=== PATIENT | female | born 1985 | race Hispanic/Latino ===

== ENCOUNTER 2018-03-26 16:44 | Emergency (ER) | payer OTHER ==
[2018-03-26 18:07] LABS: Absolute Lymphocytes (CBC) 2.9 K/uL (0.7-4.9); Absolute Monocytes 0.6 K/uL (0.1-1.3); Absolute Neutrophil 6.1 K/uL (1.8-8.0); Basophils % 0.8 % (0-1.3); Eosinophils % 1.4 % (0-4.4); Hematocrit 37.9 % (36.0-45.0); Lymphocytes % 29.3 % (15.3-44.8); MPV 8.4 fL (7.6-11.3); Monocytes % 6.1 % (3.3-12.3); RBC Red Blood Cell Count 4.39 M/uL (3.86-4.86)
[2018-03-26 18:19] LABS: Potassium 3.6 mmol/L (3.5-5.1)
[2018-03-26 18:57] LABS: Urine Bacteria <20 /HPF (<20); Urine RBC TNTC /HPF (NONE SEEN)
[2018-03-26 18:58] LABS: Urine Culture Reflex Order NOT NEEDED
--- NOTE | 2018-03-26 20:14 | ER ---
Nurse's Notes [facility] Name: Silvina Cardoso Age: 32 yrs Sex: Female : 1985 Arrival Date: 03/26/2018 Time: 16:50 Bed 24 Private MD: None, None Diagnosis: Abnormal uterine and vaginal bleeding, unspecified Presentation: 03/26 16:56 Presenting complaint: Patient states: Very heavy bleeding, 2-3 pads an hour since last night around 2100. I am on the E sure, I got it 3.5 years ago, I dont know if something is wrong with it. I am having cramping and pain in my front and lower back. I have been seeing specialists in [facility] for this, but the bleeding has never been this bad. Transition of care: patient was not received from another setting of care. Onset of symptoms was March 25, 2018 at 21:00. Risk Assessment: Do you want to hurt yourself or someone else? Patient reports no desire to harm self or others. Initial Sepsis Screen: Does the patient meet any 2 criteria? No. Patient's initial sepsis screen is negative. Does the patient have a suspected source of infection? No. Patient's initial sepsis screen is negative. Care prior to arrival: None. 16:56 Method Of Arrival: Ambulatory 16:56 Acuity: SUSIE 3 Triage Assessment: 16:59 General: Appears in no apparent distress. uncomfortable, Behavior is cooperative, ch appropriate for age. Pain: Complains of pain in low back area, suprapubic area, right lower quadrant, left lower quadrant and pelvis Pain currently is 4 out of 10 on a pain scale. : Reports vaginal bleeding that is bright red, with clots, heavy flow. 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 ch Historical: - Allergies: 16:59 No Known Allergies; - Home Meds: 16:59 esure- coil in my fallopian tubes [Active]; ch - PMHx: 16:59 heavy periods; ch - PSHx: 16:59 None; ch - Immunization history:: Adult Immunizations up to date, Flu vaccine is not up to date. - Social history:: Smoking status: Patient/guardian denies using tobacco, Patient/guardian denies using alcohol, street drugs. - Ebola Screening: : Patient negative for fever greater than or equal to 101.5 degrees Fahrenheit, and additional compatible Ebola Virus Disease symptoms Patient denies exposure to infectious person Patient denies travel to an Ebola-affected area in the 21 days before illness onset No symptoms or risks identified at this time. Screenin:28 Abuse screen: Denies threats or abuse. Denies injuries from another. Nutritional ed1 screening: No deficits noted. Tuberculosis screening: No symptoms or risk factors identified. Fall Risk None identified. Assessment: 18:54 Reassessment: Patient appears in no apparent distress at this time. No changes from ed1 previously documented assessment. Patient and/or family updated on plan of care and expected duration. Pain level reassessed. Patient is alert, oriented x 3, equal unlabored respirations, skin warm/dry/pink. Patient states symptoms have not improved. : Urine is blood tinged. 20:02 Reassessment: Patient appears in no apparent distress at this time. No changes from ed1 previously documented assessment. Patient and/or family updated on plan of care and expected duration. Pain level reassessed. Patient is alert, oriented x 3, equal unlabored respirations, skin warm/dry/pink. Patient states symptoms have not improved. Vital Signs: 16:59 BP 148 / 83; Pulse 72; Resp 14; Temp 98.6; Pulse Ox 99% on R/A; Weight 110.22 kg; Height 5 ft. 5 in. (165.10 cm); Pain 4/10; 18:54 BP 135 / 84; Pulse 76; Resp 17; Pulse Ox 100% on R/A; Pain 4/10; ed1 20:02 BP 132 / 86; Pulse 73; Resp 17; Pulse Ox 100% on R/A; Pain 4/10; ed1 16:59 Body Mass Index 40.44 (110.22 kg, 165.10 cm) ED Course: 16:50 Patient arrived in ED. sb2 16:51 None, None is Private Physician. sb2 16:58 Triage completed. 16:59 Arm band placed on left wrist. Patient placed in waiting room. 17:28 Kristy Bonilla LVN is Primary Nurse. ed1 17:28 Patient has correct armband on for positive identification. Placed in gown. Bed in low ed1 position. Call light in reach. Adult w/ patient. Pulse ox on. NIBP on. 17:30 Susana Slaughter FNP-C is PHCP. kb 17:30 Stewart Ocampo MD is Attending Physician. kb 17:53 Initial lab(s) drawn, by me, sent to lab. T\T\S collected, blood band applied to patient. ed1 Inserted saline lock: 20 gauge in right antecubital area, using aseptic technique. Blood collected. 19:29 US Transvaginal Study (Probe) In Process Unspecified. EDMS 20:[address] vm2 20:47 CT Pelvis w cont In Process Unspecified. EDMS 20:47 CT completed. Patient tolerated procedure well. Patient moved back from CT. nj 21:14 No provider procedures requiring assistance completed. IV discontinued, intact, jb4 bleeding controlled. Administered Medications: 20:24 Drug: DepoProvera - medroxyPROGESTERone 150 mg Route: IM; Site: right gluteus; ed1 Outcome: 20:13 Discharge ordered by . kb 21:14 Discharged to home ambulatory, with family. jb4 21:14 Condition: stable 21:14 Discharge instructions given to patient, family, Instructed on discharge instructions, follow up and referral plans. Demonstrated understanding of instructions, follow-up care. 21:15 Patient left the ED. jb4 Signatures: Dispatcher [employer] EDSC Susana Slaughter FNP-C FNP-Madhuri Parson, RN RN Kristy Terrazas, SENIOR GRADUATE ADVISOR SENIOR GRADUATE ADVISOR ed1 Basilio Jimenez RN RN jb4 Ludwig Caruso Victoria 2 Mariajose Freed [facility]
--- NOTE | 2018-03-26 20:14 | EDPHYS ---
Physician Documentation [facility] Name: Silvina Cardoso Age: 32 yrs Sex: Female : 1985 Arrival Date: 03/26/2018 Time: 16:50 Bed 24 Private MD: None, None ED Physician Stewart Ocampo HPI: 03/26 18:30 This 32 yrs old Female presents to ER via Ambulatory with complaints of kb Vaginal Bleeding - HEAVY. 18:30 The patient presents with vaginal bleeding that is heavy, with no clots. Onset: The kb symptoms/episode began/occurred this morning. Modifying factors: The symptoms are alleviated by nothing, the symptoms are aggravated by nothing. Associated signs and symptoms: Pertinent positives: cramping, vaginal bleeding, Pertinent negatives: constipation, diarrhea, dyspareunia, dysuria, fever, hematuria, nausea, urinary frequency, vaginal discharge, vomiting. Severity of symptoms: At their worst the symptoms were moderate, in the emergency department the symptoms are unchanged. The patient's method of control includes essure. The patient has experienced similar episodes in the past. 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 Pt states she has been having problems with heavy vaginal bleeding/prolonged vaginal bleeding for a while. Has been going to the [facility] women's clinic and they sent her to [place] for Ultrasounds. States they prescribed her oral control, but the pharmacy told her it wasn't covered by insurance so she didn't pick it up. Started having heavy bleeding again today. 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 ch Historical: - Allergies: 16:59 No Known Allergies; ch - Home Meds: 16:59 esure- coil in my fallopian tubes [Active]; ch - PMHx: 16:59 heavy periods; ch - PSHx: 16:59 None; ch - Immunization history:: Adult Immunizations up to date, Flu vaccine is not up to date. - Social history:: Smoking status: Patient/guardian denies using tobacco, Patient/guardian denies using alcohol, street drugs. - Ebola Screening: : Patient negative for fever greater than or equal to 101.5 degrees Fahrenheit, and additional compatible Ebola Virus Disease symptoms Patient denies exposure to infectious person Patient denies travel to an Ebola-affected area in the 21 days before illness onset No symptoms or risks identified at this time. ROS: 18:34 Constitutional: Negative for fever, chills, and weight loss, Cardiovascular: Negative kb for chest pain, palpitations, and edema, Respiratory: Negative for shortness of breath, cough, wheezing, and pleuritic chest pain, Abdomen/GI: Negative for abdominal pain, nausea, vomiting, diarrhea, and constipation, Back: Negative for injury and pain, MS/Extremity: Negative for injury and deformity, Skin: Negative for injury, rash, and discoloration, Neuro: Negative for headache, weakness, numbness, tingling, and seizure. 18:34 : Positive for vaginal bleeding. Exam: 18:34 Constitutional: This is a well developed, well nourished patient who is awake, alert, kb and in no acute distress. Head/Face: Normocephalic, atraumatic. Chest/axilla: Normal chest wall appearance and motion. Nontender with no deformity. No lesions are appreciated. Cardiovascular: Regular rate and rhythm with a normal S1 and S2. No gallops, murmurs, or rubs. Normal PMI, no JVD. No pulse deficits. Respiratory: Lungs have equal breath sounds bilaterally, clear to auscultation and percussion. No rales, rhonchi or wheezes noted. No increased work of breathing, no retractions or nasal flaring. Abdomen/GI: Soft, non-tender, with normal bowel sounds. No distension or tympany. No guarding or rebound. No evidence of tenderness throughout. Skin: Warm, dry with normal turgor. Normal color with no rashes, no lesions, and no evidence of cellulitis. MS/ Extremity: Pulses equal, no cyanosis. Neurovascular intact. Full, normal range of motion. Neuro: Awake and alert, GCS 15, oriented to person, place, time, and situation. Cranial nerves II-XII grossly intact. Motor strength 5/5 in all extremities. Sensory grossly intact. Cerebellar exam normal. Normal gait. Vital Signs: 16:59 BP 148 / 83; Pulse 72; Resp 14; Temp 98.6; Pulse Ox 99% on R/A; Weight 110.22 kg; ch Height 5 ft. 5 in. (165.10 cm); Pain 4/10; 18:54 BP 135 / 84; Pulse 76; Resp 17; Pulse Ox 100% on R/A; Pain 4/10; ed1 20:02 BP 132 / 86; Pulse 73; Resp 17; Pulse Ox 100% on R/A; Pain 4/10; ed1 16:59 Body Mass Index 40.44 (110.22 kg, 165.10 cm) ch MDM: 17:30 Patient medically screened. kb 18:35 Data reviewed: vital signs, nurses notes. Data interpreted: Pulse oximetry: on room air kb is 99 %. Interpretation: normal. 20:11 Counseling: I had a detailed discussion with the patient and/or guardian regarding: the kb historical points, exam findings, and any diagnostic results supporting the discharge/admit diagnosis, lab results, radiology results, the need for outpatient follow up, an OB/Gyne specialist, to return to the emergency department if symptoms worsen or persist or if there are any questions or concerns that arise at home. 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 Return for dizziness, shortness of breath, fatigue or any other concerns.. 03/26 17:36 Order name: Basic Metabolic Panel; Complete Time: 18:25 kb 03/26 17:36 Order name: CBC with Diff; Complete Time: 18:12 kb 03/26 17:36 Order name: Type And Screen; Complete Time: 18:52 kb 03/26 17:54 Order name: Urine Microscopic Only; Complete Time: 18:59 ed1 03/26 17:55 Order name: Urine Dipstick--Ancillary (enter results); Complete Time: 20:47 ag 03/26 17:36 Order name: Urine Test (obtain specimen); Complete Time: 17:53 kb 03/26 17:36 Order name: Urine Dipstick-Ancillary (obtain specimen); Complete Time: 17:53 kb 03/26 17:36 Order name: IV Saline Lock; Complete Time: 17:53 kb 03/26 17:55 Order name: Urine --Ancillary (enter results); Complete Time: 20:47 ag 03/26 18:26 Order name: US Transvaginal Study (Probe); Complete Time: 20:19 kb 03/26 19:43 Order name: ABO/RH no charge; Complete Time: 19:44 EDMS 03/26 20:22 Order name: CT Pelvis w cont; Complete Time: 21:08 kb 03/26 17:36 Order name: Labs collected and sent; Complete Time: 17:53 kb 03/26 17:36 Order name: NPO; Complete Time: 17:53 kb Administered Medications: 20:24 Drug: DepoProvera - medroxyPROGESTERone 150 mg Route: IM; Site: right gluteus; ed1 Disposition: 03/27 07:15 Co-signature as Attending Physician, Stewart Ocampo MD I agree with the assessment and kdr plan of care. Disposition: 03/26/18 20:13 Discharged to Home. Impression: Abnormal uterine and vaginal bleeding, unspecified. - Condition is Stable. - Discharge Instructions: Abnormal Uterine Bleeding, [id number]. - Medication Reconciliation Form, Thank You Letter, Antibiotic Education, Prescription Opioid Use form. - Follow up: Emergency Department; When: As needed; Reason: Worsening of condition. Follow up: Private Physician; When: 2 - 3 days; Reason: Recheck today's complaints, Continuance of care, Re-evaluation by your physician. Signatures: Dispatcher [employer] EDMS Susana Slaughter, REGULATORY AUDITOR-C REGULATORY AUDITOR-Ckb Madhuri Eddy, RN RN Stewart Ocampo MD MD [facility] Kristy Bonilla, HAND COMPOSITOR HAND COMPOSITOR ed1 Basilio Jimenez, RN RN jb4 Corrections: (The following items were deleted from the chart) 03/26 18:35 18:30 Pt states she has been having problems with heavy vaginal bleeding/prolonged kb vaginal bleeding for a while. Has been going to the [facility] women's clinic and they sent her to [place] for Ultrasounds. States they prescribed her oral control, but the pharmacy told her it wasn't covered by insurance so she didn't pick it up.. kb 21:15 20:13 03/26/2018 20:13 Discharged to Home. Impression: Abnormal uterine and vaginal jb4 bleeding, unspecified. Condition is Stable. Forms are Medication Reconciliation Form, Thank You Letter, Antibiotic Education, Prescription Opioid Use. Follow up: Emergency Department; When: As needed; Reason: Worsening of condition. Follow up: Private Physician; When: 2 - 3 days; Reason: Recheck today's complaints, Continuance of care, Re-evaluation by your physician. kb
--- NOTE | 2018-03-26 20:17 | RAD REPORT ---
EXAM DESCRIPTION: US - Transvaginal Study Probe - 03/26/2018 7:29 pm CLINICAL HISTORY: Vaginal bleeding/abdominal pain COMPARISON: none FINDINGS: The uterus measures 10 x 6 x 7 cm. Endometrial stripe within the lower uterine segment measures 16 millimeters and is somewhat inhomogen eous. Endometrial stripe measures 1 centimeter within uterine fundus. A 8 millimeter fibroid is present. Small echogenic structure is seen within the right aspect of the u terus. The cervical canal appears mildly inhomogeneous. Left ovary normal in size and echotexture. Right ovary is not seen. No significant free fluid is seen. IMPRESSION: 8 millimeter fibroid . Heterogeneous endometrial stripe within the lower uterine segment probably is not significant. Lurdes r it is recommended that the patient have a follow up ultrasound in a couple of months for re-evaluat ion Echogenic structure within the right aspect of the uterus may a represent a portion of an Essure coil . A coil within the left aspect of the uterus is not seen. It is uncertain if the coils are present b ut not seen secondary to technical factors or if the coils are not present within the uterus. If clin ically indicated further evaluation with an unenhanced CT scan the pelvis could be obtained for jamar r assessment of the coils
[2018-03-26] MEDS ORDERED: MEDROXYPROGEST ACET 150 MG/ML IM ONE (20:24)
[2018-03-26 20:46] LABS: Urine Blood 3+ (NEG); Urine Glucose NEGATIVE (NEG); Urine Protein 3+ (NEG); Urine pH 5.5 (5.0-7.0)
--- NOTE | 2018-03-26 21:00 | RAD REPORT ---
EXAM DESCRIPTION: CT - Pelvis W/Cont - 03/26/2018 8:47 pm CLINICAL HISTORY: Vaginal bleeding/abdominal pain COMPARISON: March 26, 2018 ultrasound TECHNIQUE: Computed axial tomography of the pelvis was obtained. 50 cc [id number]-[address] administered intra ven[address] All CT scans are performed using dose optimization technique as appropriate and may include automated exposure control or mA/KV adjustment according to patient size. FINDINGS: Bilateral Essure coils are in good position within the uterus extending to the fallopian t ubes. Endometrial stripe within the lower uterine segment is thickened. Ovaries appear normal in size and density. No significant free fluid. There is no evidence of diverticulitis. The appendix is normal. A tiny umbilical hernia IMPRESSION: Endometrial stripe is thickened within the lower uterine segment. This may be related to normal menstrual changes. Pathology such as a polyp or other mass has a similar appearance. Followup ultrasound in a couple months is recommended for re-evaluation. Essure Coils in good position
== END 2018-03-26 21:15 | disposition home or self-care (01) ==
LOC: ER 16:44
DX: N93.9 Abnormal uterine and vaginal bleeding, unspecified (principal)
CPT/HCPCS: 36415; 72193; 76830; 80048; 81003; 81015; 81025; 85025; 86850; 86900; 86901; 96372; 99284; J1050

== ENCOUNTER 2023-12-17 12:43 | Emergency (ER) | payer OTHER ==
[2023-12-17] MEDS ORDERED: MORPHINE 4 MG/ML SYR ONE (13:44)
[2023-12-17] MEDS ORDERED: ONDANSETRON 4 MG/2 ML VIAL ONE (13:44)
[2023-12-17 13:58] LABS: Absolute Basophils 0.1 K/uL (0-0.5); Absolute Eosinophils 0.1 K/uL (0-0.5); Absolute Lymphocytes (CBC) 2.6 K/uL (0.7-4.9); Absolute Monocytes 0.6 K/uL (0.1-1.3); Absolute Neutrophil 4.4 K/uL (1.8-8.0); Eosinophils % 1.4 % (0-4.4); Hematocrit 26.3 % (36.0-45.0); Lymphocytes % 33.3 % (15.3-44.8); MCV 64.2 fL (80-100); MPV 8.5 fL (7.6-11.3); Monocytes % 7.9 % (3.3-12.3); Neutrophils % 56.4 % (41.7-73.7); Platelets 351 thou/uL (152-406); Red Cell Distribution Width 20.5 % (12.1-15.2)
[2023-12-17 14:02] LABS: PT Prothrombin Time 12.2 SECONDS (9.4-12.5); PTT, Activated Partial Thromb 31.4 SECONDS (24.3-36.9); Protime INR 1.09
[2023-12-17 14:09] LABS: Anion Gap 6.8 mEq/L (5.0-15.0); Potassium 3.8 mEq/L (3.5-5.1)
[2023-12-17 14:19] LABS: MCH 19.5 pg (27.0-35.0); MCHC 30.4 g/dL (32.0-36.0)
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
[2023-12-17 16:09] VITALS: BP 110/55; TEMP 98.2; O2SAT 99
[2023-12-17 19:14] LABS: Anisocytosis 1+; Blood Morphology Comment NOTED (NOT SEEN); Hypochromasia 2+; Microcytosis 2+; Ovalocytes SLIGHT; Platelet Estimate ADEQ; Poikilocytosis SLIGHT; Polychromasia 1+; White Blood Cell Scan OK (OK)
== END 2023-12-17 15:54 | disposition home or self-care (01) ==
LOC: ER 12:43
DX: M79.652 Pain in left thigh (principal); M79.632 Pain in left forearm; V49.40XA Driver injured in collision with unspecified motor vehicles in traffic accident, initial encounter
CPT/HCPCS: 36415; 80048; 84703; 85025; 85610; 85730; 86850; 86900; 86901; 96374; 96375; 99284; J2405